=== PATIENT | male | born 1955 | race Caucasian/White ===

== ENCOUNTER → 2021-03-15 | Outpatient (CLI) | payer MEDICARE ==
--- NOTE | 2021-03-15 11:38 | MR ---
EXAMINATION TYPE: MR shoulder RT wo con DATE OF EXAM: 03/15/2021 COMPARISON: None HISTORY: Rt shoulder pain TECHNIQUE: Multiplanar, multisequence imaging of the right shoulder is performed without contrast. FINDINGS: Rotator Cuff: Abnormal increased intrinsic signal is present within the rotator cuff, partial thickne ss undersurface tear is suspected, coronal image #13, the rotator cuff tendon is thickened Acromioclavicular Joint: There is arthropathy change present causing mass effect on the musculotendin ous junction of supraspinatus. There is a distal acromial spur. Fluid signal is present in the subacr omial subdeltoid bursa. Glenohumeral Joint: Intact Labrum: Suspicious for tear, coronal image 11 of the superior aspect of the labrum Biceps Tendon: Long head of biceps tendon is not seen within the bicipital groove, possibly subluxed medially Bone marrow signal: There are pseudocysts present within the humeral head. Other: No additional significant abnormality is appreciated. IMPRESSION: Undersurface tear of the rotator cuff, correlate for impingement. Difficult to exclude SLAP lesion lam perior labrum. Long head of biceps tendon is not seen within the bicipital groove.
== END | disposition home or self-care (01) ==
LOC: RADMRIMAIN 09:10
PROVIDERS: ATTEND Family Medicine
DX: M75.101 Unspecified rotator cuff tear or rupture of right shoulder, not specified as traumatic (principal)

== ENCOUNTER → 2023-07-09 | Outpatient (CLI) | payer MEDICARE ==
--- NOTE | 2023-07-09 08:01 | US ---
EXAMINATION TYPE: US Aorta Screening DATE OF EXAM: 07/09/2023 COMPARISON: NONE CLINICAL INDICATION: Male, 68 years old with history of Z12.2; MEDICARE SCREENING TECHNIQUE: Multiple sonographic images of the abdominal aorta are obtained. FINDINGS: EXAM MEASUREMENTS: Abdominal Aorta: Proximal: 2.1X2.3 Mid: 2.0X2.0 Distal: 1.9X1.8 Bifurcation: RT: 1.3X0.9 LT: 1.3X1.0 CAN SEALER NOTES: normal tapering of abdominal aorta, no AAA seen. Lang[place] appear irregular. Iliac art eries difficult to assess due to tortuous course of vessels IMPRESSION: No evidence for aortic aneurysm.
--- NOTE | 2023-07-09 08:45 | CTL ---
EXAMINATION TYPE: CT Low Dose Lung DATE OF EXAM ORDERED: 07/09/2023 HISTORY: F17.210. Current smoker, 40 pack year history. Lung cancer screening CT DLP: [address] CTDI: 1.68 mGy Automated exposure control for dose reduction was used. SCREENING VISIT: First screening visit COMPARISON: None TECHNIQUE: Low dose computed tomography scan was performed through the chest at 1 mm thick sections a nd reconstructed images in multiple planes at 1 mm and [address] DIAGNOSTIC QUALITY: Satisfactory FINDINGS: LUNG NODULES: Punctate calcified granuloma within the left lower lobe. 2 mm nodule along the right mi nor fissure favored to represent an intrafissural lymph node (series 4, image 151). 4 mm nodule along the right minor fissure favored to represent an intrafissural lymph node (series 4, image 157). 3 mm nodule along the right minor fissure favored to represent intrafissural lymph node (series 4, image 163). LUNGS: COPD: Severity: Mild Fibrosis: Severity: None Lymph nodes: None Other findings: None RIGHT PLEURAL SPACE: Effusion: None Calcification: None Thickening: None Pneumothorax: None LEFT PLEURAL SPACE: Effusion: None Calcification: None Thickening: None Pneumothorax: None HEART: Heart Size: Normal Coronary Calcification: Small Pericardial Effusion: None OTHER FINDINGS: Upper abdomen: None Bony thorax: None Supraclavicular region: None Other: Atherosclerotic calcification of the aorta and its branches. IMPRESSION: 1. Few nodules measuring up to 4 mm. A few these are favored to represent intrafissural lymph nodes. 2. Mild to moderate COPD changes. CT LUNG RAD AND CT CHEST RECOMMENDATION: Lung-Rad 2 Benign Appearance or Behavior: Continue annual sc reening with LDCT in 12 months. S Modifier (other clinically significant findings): None
== END | disposition home or self-care (01) ==
LOC: RADUSWWP 06:57
PROVIDERS: ATTEND Family Medicine
DX: Z12.2 Encounter for screening for malignant neoplasm of respiratory organs (principal); Z13.6 Encounter for screening for cardiovascular disorders; J44.9 Chronic obstructive pulmonary disease, unspecified; R91.8 Other nonspecific abnormal finding of lung field; F17.210 Nicotine dependence, cigarettes, uncomplicated
CPT/HCPCS: 71271; 76706

== ENCOUNTER → 2024-09-30 | Outpatient (CLI) | payer MEDICARE ==
--- NOTE | 2024-10-01 20:29 | CTL ---
EXAMINATION TYPE: CT Low Dose Lung DATE OF EXAM ORDERED: 09/30/2024 HISTORY: . Low Dose CT Lung Screening CT DLP: 110.[address] CTDI: 2.7 mGy IV CONTRAST USED: None. SCREENING VISIT: #2 COMPARISON: 07/09/2023 TECHNIQUE: Low dose computed tomography scan was performed through the chest at 1 millimeter thick se ctions and reconstructed images in the coronal plane at [address] DIAGNOSTIC QUALITY: Satisfactory FINDINGS: LUNG NODULES: There are a few scattered sub-5 mm pulmonary nodules noted. No nodularity greater than 6 mm peritoneal nodules or suspicious nodules appreciated. LUNGS: COPD: Severity: 1. Emphysematous changes are redemonstrated. Fibrosis: Severity:None Lymph nodes: None Other findings: None RIGHT PLEURAL SPACE: Effusion: None Calcification: None Thickening: None Pneumothorax: None LEFT PLEURAL SPACE: Effusion: None Calcification: None Thickening: None Pneumothorax: None HEART: Heart Size: Mildly enlarged Coronary calcification: Mild Pericardial effusion: None OTHER FINDINGS: Upper abdomen: No significant abnormality Bony thorax: Degenerative changes Supraclavicular region: No significant abnormalityOther: No significant abnormalityI IMPRESSION: Benign FOLLOW UP CT CHEST RECOMMENDATION: Follow-up screening in one year CT LUNG RAD: LUNG RAD CATEGORY category 2 benign appearance and/or behavior. [facility], , 10/01/2024 8:26 PM
== END | disposition home or self-care (01) ==
LOC: RADCTMAIN 07:40
PROVIDERS: ATTEND Family Medicine
DX: Z12.2 Encounter for screening for malignant neoplasm of respiratory organs (principal); F17.210 Nicotine dependence, cigarettes, uncomplicated
CPT/HCPCS: 71271